=== PATIENT | female | born 1985 | race Caucasian/White ===

== ENCOUNTER → 2017-10-05 | Outpatient (CLI) | payer OTHER ==
[~2017-10-05] MED LIST: AMBIEN 5 MG TABL5 M1 PO; ATIVAN1 MG PO; CYCLOBENZAPRINE5 MG PO; PROZAC20 MG PO; TRAZODONE HCL100 MG PO
== END ==
LOC: M.LAB 10:45
DX: N91.1 Secondary amenorrhea (principal); N64.4 Mastodynia